=== PATIENT | male | born 1945 | race Hispanic/Latino ===

== ENCOUNTER 2016-12-06 09:00 | Outpatient (CLI) | payer MEDICARE, MEDICAID ==
--- NOTE | 2016-12-06 10:10 | CT ---
CT PULMONARY LUNG SCAN: Date: 12/06/16 INDICATION: Chronic smoking since 14 years of age. Patient is a 71-year-old male. COMPARISON: CT PE study dated 08/26/14. FINDINGS: There are areas of scattered bronchiectasis and tree-in-bud nodularity involving the lower lobes, as well as the posterior segments of the upper lobe. There is a nodular focus within the right mainste m bronchus measuring 1.2 cm, image 27 of series 3. There is mild to moderate emphysema. There is sca ttered coronary artery thoracic aortic calcifications. Visualized upper abdomen is unremarkable. No definite acute osseous abnormality is evident. IMPRESSION: Lung-RADS Category 3S: Positive finding which are likely benign but requiring imaging followup unti l benign criteria identified. There is an endobronchial nodule seen within the right mainstem bronch us which may reflect eccentric mucus. Would recommend low dose CT follow-up examination in 1 month f ollow vigorous coughing. Additionally, there are numerous new scattered tree-in-bud type nodules see n scattered throughout the lower lungs, as well as the upper lobes, which may be related to a bronch iolitis. There has been development of bronchiectasis involving both lower lobes. Category S: Mild to moderate emphysema. Coronary artery and thoracic aortic calcifications. CODE T. POS: [facility]
== END 2016-12-06 09:01 | disposition home or self-care (01) ==
LOC: CT 09:00
PROVIDERS: ATTEND Family Medicine
DX: F17.210 Nicotine dependence, cigarettes, uncomplicated (principal); F17.211 Nicotine dependence, cigarettes, in remission
CPT/HCPCS: G0297

== ENCOUNTER 2017-02-08 07:30 | Emergency (ER) | payer MEDICARE, MEDICAID ==
--- NOTE | 2017-02-08 09:37 | RAD ---
CHEST TWO VIEWS: HISTORY: Cough and fever. COMPARISON: 01/28/2016 FINDINGS: The cardiac silhouette and pulmonary vasculature are unremarkable. The mediastinum is midline. Pulm onary hyperinflation with marked coarsening of the interstitium and scattered tiny nodular densities are stable. No pleural fluid or lobar consolidation is apparent. No evidence of pneumothorax. IMPRESSION: 1. Chronic obstructive pulmonary disease. 2. Coarsened interstitium and other chronic type findings are stable. 3. No lobar consolidation or other active cardiopulmonary abnormalities are apparent. POS: [facility]
[2017-02-08] MEDS ORDERED: Oseltamivir 75 MG CAP PO SCH (12:00)
== END 2017-02-08 12:35 | disposition home or self-care (01) ==
LOC: ERS 07:30
DX: J11.1 Influenza due to unidentified influenza virus with other respiratory manifestations (principal); E78.5 Hyperlipidemia, unspecified; I10 Essential (primary) hypertension; F32.9 Major depressive disorder, single episode, unspecified; Z87.891 Personal history of nicotine dependence; Z86.73 Personal history of transient ischemic attack (TIA), and cerebral infarction without residual deficits
CPT/HCPCS: 71020

== ENCOUNTER 2017-03-03 07:38 | Outpatient (CLI) | payer MEDICARE, MEDICAID ==
--- NOTE | 2017-03-03 09:03 | CT ---
CT CHEST NONCONTRAST: Date: 03/03/17 HISTORY: Endobronchial nodule. COPD. Follow-up. COMPARISON: 12/06/16. FINDINGS: The oval nodular opacity at the posterior aspect of the right mainstem bronchus on the previous study is no longer visible. No new endobronchial nodules are apparent. Lungs remain hyperinflated with scattered emphysematous changes. Peripheral interstitial thickening e xtending to the pleural surface and scattered interstitial nodularity are stable. No focal parenchyma l mass is demonstrated. No pleural fluid or pneumothorax. Lack of contrast limits evaluation of the mediastinum. There is prominent calcification within the ar terial structures. IMPRESSION: 1. Interval disappearance of the nodularity opacity of the right mainstem bronchus from the previous exam. It likely represented mucus at the time. No new abnormalities are apparent. 2. COPD and fibrotic lung changes, stable. 3. Atherosclerosis. POS: [facility]
== END 2017-03-03 07:39 | disposition home or self-care (01) ==
LOC: CT 07:38
PROVIDERS: ATTEND Family Medicine
DX: F17.210 Nicotine dependence, cigarettes, uncomplicated (principal); R91.8 Other nonspecific abnormal finding of lung field; J44.9 Chronic obstructive pulmonary disease, unspecified; J84.10 Pulmonary fibrosis, unspecified; I70.90 Unspecified atherosclerosis
CPT/HCPCS: 71250

== ENCOUNTER 2019-01-20 21:03 | Emergency (ER) | payer MEDICARE, MEDICAID ==
[2019-01-20 23:02] LABS: Hemoglobin 16.5 g/dL (14.0-18.0); Mean Corpuscular HGB CONC 33.2 g/dL (32.0-36.0); Mean Corpuscular Hemoglobin 30.7 pg (27.0-31.0); Mean Corpuscular Volume 92.6 fL (78.0-98.0); RBC Distribution Width 13.1 % (11.5-14.5); Red Blood Cell (RBC) Count 5.37 mill/uL (4.70-6.10)
[2019-01-20 23:11] LABS: MDiff Complete? YES; Mean Platelet Volume 8.6 fL (7.4-10.4); Platelet Count 211 thou/uL (130-400); White Blood Cell (WBC) Count 23.8 thou/uL (4.8-10.8)
[2019-01-20 23:12] LABS: ALT (SGPT) 17 U/L (8-55); AST (SGOT) 17 U/L (5-34); Alkaline Phosphatase 138 U/L (40-110); Anion Gap 12 mmol/L (10-20); BUN (Urea Nitrogen) 25 mg/dL (8.4-25.7); Band 18 % (5-11); Bilirubin, Total 1.1 mg/dL (0.2-1.2); Calc. Creatinine Clearance 0 mL/min (70-130); Calcium 9.5 mg/dL (7.8-10.44); Carbon Dioxide 26 mmol/L (23-31); Chloride 102 mmol/L (98-107); Estimated GFR-MDRD 62; Globulin 3.8 g/dL (2.4-3.5); Glucose 140 mg/dL (83-110); Lymphocytes 10 % (21-51); Monocytes 7 % (0-10); Neutrophil 65 % (42-75); Potassium 3.8 mmol/L (3.5-5.1); Protein, Total 7.8 g/dL (5.8-8.1); Sodium 136 mmol/L (136-145)
[2019-01-21 00:45] LABS: Bacteria/HPF None Seen HPF (None Seen); Bilirubin Negative (Negative); Blood, Urine 3+ (Negative); Clarity Extra Turbid (Clear); Glucose, Urine (Dipstick) 30 mg/dL (Negative); Leukocyte 500 Leu/uL (Negative); Nitrite Negative (Negative); Protein, Urine (Dipstick) 300 mg/dL (Neg-Trace); RBC/HPF Greater than 50 HPF (0-3); Squamous Epithelial None Seen HPF (0-3); Urobilinogen Normal mg/dL (Less than 2); WBC/HPF Greater than 50 HPF (0-3)
[2019-01-21] MEDS ORDERED: cefTRIAXone\\ROCEPHIN 2 GM VIAL ONE (01:10)
[2019-01-21] MEDS ORDERED: Sodium Chloride 0.9% 100 ML ONE (01:10)
== END 2019-01-21 01:46 | disposition home or self-care (01) ==
LOC: ERS 21:03
DX: N30.91 Cystitis, unspecified with hematuria (principal); E78.5 Hyperlipidemia, unspecified; I10 Essential (primary) hypertension; F32.9 Major depressive disorder, single episode, unspecified; Z86.73 Personal history of transient ischemic attack (TIA), and cerebral infarction without residual deficits; Z87.891 Personal history of nicotine dependence; Z79.82 Long term (current) use of aspirin; Z79.51 Long term (current) use of inhaled steroids; Z79.899 Other long term (current) drug therapy
CPT/HCPCS: 36415; 51701; 80053; 81003; 81015; 85025; 87077; 87086; 87186; 96361; 96365; J0696; J3490

== ENCOUNTER 2020-03-03 20:15 | Inpatient (IN) | payer MEDICARE, MEDICAID ==
[2020-03-03] MEDS ORDERED: Albuterol 200 PUFF (6.7GM INHALER) ONE (20:45)
--- NOTE | 2020-03-03 20:47 | RAD ---
PORTABLE CHEST: 03/03/20 HISTORY: Dyspnea. COMPARISON: 02/08/17 exam which is the most recent chest x-ray available for comparison. Heart size is within normal limits. Chronic lung changes are seen. However, there is overall increase in the markings as compared to the prior examination. This would suggest that there is some superimp osed infiltrate. IMPRESSION: Marked chronic lung changes with markings in both lung hart more prominent than on the prior exam s uggesting a coexistent pneumonia of which COVID pneumonia would have to be a consideration. POS: [facility]
[2020-03-03 20:55] LABS: Hemoglobin 16.3 g/dL (14.0-18.0); Mean Corpuscular HGB CONC 32.9 g/dL (32.0-36.0); Mean Corpuscular Hemoglobin 30.3 pg (27.0-31.0); Mean Corpuscular Volume 92.1 fL (78.0-98.0); Mean Platelet Volume 8.1 fL (7.4-10.4); Platelet Count 304 thou/uL (130-400); Red Blood Cell (RBC) Count 5.38 mill/uL (4.70-6.10); White Blood Cell (WBC) Count 22.1 thou/uL (4.8-10.8)
[2020-03-03 21:11] LABS: ALT (SGPT) 17 U/L (8-55); AST (SGOT) 19 U/L (5-34); Albumin 4.1 g/dL (3.4-4.8); Alkaline Phosphatase 167 U/L (40-110); Anion Gap 19 mmol/L (10-20); BUN (Urea Nitrogen) 22 mg/dL (8.4-25.7); Bilirubin, Total 0.7 mg/dL (0.2-1.2); Calc. Creatinine Clearance 0 mL/min (70-130); Carbon Dioxide 25 mmol/L (23-31); Chloride 100 mmol/L (98-107); Globulin 4.6 g/dL (2.4-3.5); Glucose 124 mg/dL (83-110); Potassium 3.5 mmol/L (3.5-5.1); Protein, Total 8.7 g/dL (5.8-8.1); Sodium 140 mmol/L (136-145)
[2020-03-03 21:14] LABS: Band 6 % (5-11); Eosinophils 1 % (0-10); Lymphocytes 19 % (21-51); MDiff Complete? YES; Monocytes 4 % (0-10); Neutrophil 69 % (42-75); Reactive Lymphocytes 1 % (0-10)
[2020-03-03 21:23] LABS: SARS-CoV-2 NAA Rapid Test Not Detected (NotDetected)
[2020-03-03] MEDS ORDERED: cefTRIAXone\\ROCEPHIN 2 GM VIAL ONE (21:36)
--- NOTE | 2020-03-03 21:41 | PDOC.FPRHP ---
- History of Present Illness Chief Complaint: Shortness of Breath History of Present Illness: 74yo male with PMHx of significant COPD presented by EMS for SOB. He presents with his daughter who provides majority of the history. Patience started to have a bad cough around 45min after eating-approximately [id number]. Family called EMS because he was struggling to breath through coughing. They tried his inhaler and Robitussion prior to calling with no improvement. Denies fever and sick contacts. Daughter reports hx of aspiration of pneumonia. ED Course: Per ED report, "He was placed on the EMS CPAP, treated with magnesium, 125 mg of Solu-Medrol, and an inline breathing treatment prior to arrival to the emergency room." At time of exam he was comfortable on 4LNC. Patient received 500 mg Azithromycin, 2g Rocephin, 1L NS bolus, 2 INH of albuterol. Patient met sepsis criteria with pulse of 130, RR of 30, and WBC of 22.1. Patient also had Lactic acid of 4.1. Patient received 1g Tylenol after spiking fever. - Allergies/Adverse Reactions Allergies Allergy/AdvReac Type Severity Reaction Status Date / Time No Known Allergies Allergy Verified 03/04/20 03:51 - Home Medications Medication Instructions Recorded Confirmed Type Aspirin 325 mg PO DAILY 03/04/20 03/04/20 History Atorvastatin Calcium 80 mg PO DAILY 03/04/20 03/04/20 History FLUoxetine HCl 20 mg PO DAILY 03/04/20 03/04/20 History Fluticasone/Salmeterol [Advair HFA 2 inh IH BID #2 [email or web address] 03/04/20 Rx 115 Inhaler] Ipratropium/Albuterol Sulfate 3 ml NEB Q4H #10 neb 03/04/20 Rx [DuoNeb] Memantine HCl 10 mg PO BID 03/04/20 03/04/20 History Cefdinir 300 mg PO Q12HR 8 Days #16 capsule 03/06/20 Rx - History PMHx: 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 Lives with family. Uses walker to ambulate - Review of Systems General: denies: fever/chills, fatigue Eyes: denies: eye pain, vision changes ENT: denies: nasal congestion, rhinorrhea Respiratory: reports: cough, shortness of breath Cardiovascular: denies: chest pain, edema Gastrointestinal: denies: nausea, vomiting, diarrhea Genitourinary: reports: incontinence. denies: dysuria Skin: denies: rashes, lesions Musculoskeletal: denies: pain, swelling Neurological: reports: weakness (chronic R sided weakness). denies: syncope - Vital signs BP: 198/125, Pulse: 130, Resp: 30, Temp: 99.5 (Oral), Pain: UTR, O2 sat: 97 on (Bipap), Time: 03/03/2020 20:18. BP: 157/92, Pulse: 124, Resp: 29, Pain: UTR, O2 sat: 97 5L, Time: 03/03/2020 20:5 1. BP: 120/60, Pulse: 120, Resp: 28, Pain: UTR, O2 sat: 98 5L, Time: 03/03/2020 21:26. Wt 73 kg - Physical Exam Constitutional: NAD HEENT: normocephalic and atraumatic, grossly normal vision, grossly normal hearing Neck: supple, FROM Chest: no-tender to palpation Heart: RRR, normal S1/S2, no murmurs/rubs/gallops Lungs: no respiratory distress -Lungs: Very Poor air movement with no wheezing or rhonchi Abdomen: soft, non-tender, bowel sounds present, no masses/distention Musculoskeletal: normal structure, normal tone, ROM grossly normal Neurological: other (Right sided weakness, 4/5 strength, A&OX1-2) Skin: no rash/lesions, good turgor Heme/Lymphatic: no unusual bruising or bleeding, no petechia FMR H&P: Results - Labs Result Diagrams: 03/06/20 04:44 03/06/20 04:44 Lab results: WBC 22.1 thou/uL (4.8-10.8) H 03/03/20 20:38 Hgb 16.3 g/dL (14.0-18.0) 03/03/20 20:38 Hct 49.6 % (42.0-52.0) 03/03/20 20:38 MCV 92.1 fL (78.0-98.0) 03/03/20 20:38 Plt Count 304 thou/uL (130-400) 03/03/20 20:38 Band Neuts % (Manual) 6 % (5-11) 03/03/20 20:38 Sodium 140 mmol/L (136-145) 03/03/20 20:38 Potassium 3.5 mmol/L (3.5-5.1) 03/03/20 20:38 Chloride 100 mmol/L (98-107) 03/03/20 20:38 Carbon Dioxide 25 mmol/L (23-31) 03/03/20 20:38 BUN 22 mg/dL (8.4-25.7) 03/03/20 20:38 Creatinine 1.09 mg/dL (0.7-1.3) 03/03/20 20:38 Glucose 124 mg/dL (83-110) H 03/03/20 20:38 Lactic Acid 4.1 mmol/L (0.5-2.2) H* 03/03/20 20:38 Calcium 9.0 mg/dL (7.8-10.44) 03/03/20 20:38 Total Bilirubin 0.7 mg/dL (0.2-1.2) 03/03/20 20:38 AST 19 U/L (5-34) 03/03/20 20:38 ALT 17 U/L (8-55) 03/03/20 20:38 Alkaline Phosphatase 167 U/L (40-110) H 03/03/20 20:38 B-Natriuretic Peptide 13.8 pg/mL (0-100) 03/03/20 20:38 Serum Total Protein 8.7 g/dL (5.8-8.1) H 03/03/20 20:38 Albumin 4.1 g/dL (3.4-4.8) 03/03/20 20:38 - EKG Interpretation EKG: EKG with significant artifact, tachycardia. - Radiology Interpretation Chest x-ray Status: image reviewed by me, report reviewed by me Additional comment: More marked chronic lung changes consistent with COPD with concern for pneumo terence. FMR H&P: A/P - Plan Acute hypoxic respiratory failure 2/2 CAP vs Aspiration Pneumonia Sepsis 2/2 above - Patient met sepsis criteria w/ tachycardia, tachypnea, WBC count. LA 4.1. O2 requirement weaned from CPAPwith EMS to 4L NC currently - Patient has hx of aspiration pneumonia s/p CVA, daughter is unsure of last e pisode - S/p Rocephin/Azithro in ed - Will treat for CAP/aspiration pneumonia with Unasyn and Azithromycin - Monitor VS COPD Exacerbation - Likely some component of dyspnea given hx and poor air movement - Duonebs scheduled Q4h - Solumedrol 40 mg QD - O2 sats 88-92%, supplemental O2 PRN Tachycardia - in 130s in ED - mIVF with LR Hx of CVA - Has residual R sided weakness - Speech therapy consult for swallow eval given concern for aspiration pneumonitis - Otherwise, deficits at baseline per daughter HTN - Will control with IV PRN medication until swallow study cleared Chronic Disease - HLD, GERD - Hold home medications pending swallow study DVT ppx: Lovenox GI PPX: none Diet: NPO Code: Full-Daughter requested that medicine and defibrillation be tried before intubation and chest compression. PCP- Demetrio GERONIMO FMR H&P: Upper Level - Pertinent history Mr Lieberman is a 74yo male with pmh COPD presented via EMS for SOB. His family was concerned about his coughing and work of breathing. Episode started approx. 45min after eating. Prior to this he was in his usual state of health. Denies sick contacts, fever, diarrhea. Tried inhaler at home with little improvement. Has hx of aspiration pna. PE: General: NAD, oriented to person and place with prompts CV: tachycardic regular rhythm, no murmur Pulm: Diminished air movement Extremities: No edema Neuro: R sided weakness A/P: Acute Hypoxic Resp Failure 2/2 CAP vs COPD exacerbation -Initially requiring CPAP, now on 4L NC. Rapid COVID/Flu neg. CXR chronic lung changes with coexistent pneumonia. BNP nml. Azithromycin & Ceftriaxone started in ED, Will treat for aspiration pna with Unasyn to cover anaerobes and azithro for atypicals. Ordered procal. Treat COPD exacerbation with steroids and scheduled duonebs q4hr. Admit to medical. Sepsis 2/2 PNA -WBC 22.5, HR 120. Blood and urine cx pending. Continue Abx. LA 4.1, repeat ordered. Procal pending. - Plan Date/Time: 03/03/202137 I, Brittany Kidd, have evaluated this patient and agree with findings/plan as outlined by internet media planner resident. Pertinent changes/additions are listed here. Addendum - Attending - Attending Attestation Date/Time: 03/29/20 [id number] I personally evaluated the patient and discussed the management with Dr. Wilson on 03/03/20. I agree with the History, Examination, Assessment and Plan documented above without any addition or exceptions.
[2020-03-03] MEDS ORDERED: Azithromycin 500 MG VIAL ONE (22:19)
[2020-03-03] MEDS ORDERED: Acetaminophen 500 MG TAB ONE (22:27)
[2020-03-03] MEDS ORDERED: Acetaminophen 650 MG Suppository PR PRN (23:31)
[2020-03-03 23:38] LABS: Lactic Acid 1.8 mmol/L (0.5-2.2)
[2020-03-04] MEDS ORDERED: Lactated Ringer's 1,000 ML IV SCH (00:15)
[2020-03-04] MEDS ORDERED: Ampicillin/Sulbactam 3 GM in Sodium Chloride 0.9% 100 ML IVPB SCH ×2 (00:45→06:00)
[2020-03-04 04:04] VITALS: BMI 27.6
[2020-03-04] MEDS ORDERED: FLU VACC QS2020-21(65YR UP)/PF 240 MCG/0.7 ML SYRINGE IM ONE (06:30)
--- NOTE | 2020-03-04 06:45 | PDOC.FM ---
- Subjective Subjective: Patient resting comfortably in bed on 2.5L NC @ 100%. Patient taken off O2 as goal with history of COPD is 88-92%. States he has no complaints and feels better than he did yesterday. Denies CP, SOB - Objective MAR Reviewed: Yes Vital Signs & Weight: Vital Signs (12 hours) Temp Pulse Resp BP Pulse Ox 03/04/20 03:45 98.1 F 80 14 129/72 100 03/04/20 00:48 94 15 100 Weight Weight 75.251 kg Result Diagrams: 03/04/20 06:25 03/04/20 06:25 Phys Exam - Physical Examination Constitutional: NAD HEENT: moist MMs Neck: supple, full ROM diffuse rhonci b/l Cardiovascular: RRR, no significant murmur Gastrointestinal: soft, non-tender, positive bowel sounds Musculoskeletal: no edema, pulses present Neurological: normal sensation, moves all 4 limbs Psychiatric: normal affect Skin: no rash, normal turgor Dx/Plan - Plan Plan: Acute hypoxic respiratory failure 2/2 CAP vs Aspiration Pneumonitis - Patient w/ tachycardia, tachypnea, WBC count. LA 4.1. O2 requirement weaned from CPAPwith EMS to 4L NC currently - Patient has hx of aspiration pneumonia s/p CVA, daughter is unsure of last e pisode - S/p Rocephin/Azithro in ed - Was initially treated for CAP/aspiration pneumonia with Unasyn and Azithromycin, d/c on 03/04 - Monitor VS -lactic acid and WBC trended down. Clinical picture improved, on RA, procal neg. likely aspiration pneumonitis. Will treat as such. history of COPD - on home Duonebs and Advair - Duonebs scheduled Q4h - Solumedrol 40 mg QD (d/c 03/04) - O2 sats 88-92%, supplemental O2 PRN Tachycardia, resolved - in 130s in ED - mIVF with LR d/c 03/04 Hx of CVA - Has residual R sided weakness - Speech therapy consult for swallow eval given concern for aspiration pneumonitis - Otherwise, deficits at baseline per daughter HTN - Will control with IV PRN medication until swallow study cleared Chronic Disease - HLD, GERD - Hold home medications pending swallow study DVT ppx: Lovenox GI PPX: none Diet: NPO pending speech consult Code: Full-Daughter requested that medicine and defibrillation be tried before intubation and chest compression. PCP- Demetrio GERONIMO Dispo: patient does not meet inpatient criteria at this time. Pending speech eval. Improved respiratory status. Will monitor for the rest of today; anticipate discharge today or tomorrow with follow up later this week outpatient Addendum - Attending - Attending Attestation Date/Time: 03/04/20 1141 I personally evaluated the patient and discussed the management with Dr. Guajardo. I agree with the History, Examination, Assessment and Plan documented above with any addition or exceptions noted below. Patient with no symptoms this AM and at baseline. No cough, fever or other signs. His exam is largely reassuring. I feel likely if aspiration, just mild pneumonitis and no current indications of PNA. Return warnings discussed in detail.
[2020-03-04 06:51] LABS: Hemoglobin 13.7 g/dL (14.0-18.0); Mean Corpuscular HGB CONC 32.8 g/dL (32.0-36.0); Mean Corpuscular Hemoglobin 30.4 pg (27.0-31.0); Mean Corpuscular Volume 92.9 fL (78.0-98.0); Mean Platelet Volume 8.2 fL (7.4-10.4); Platelet Count 213 thou/uL (130-400); RBC Distribution Width 12.8 % (11.5-14.5); Red Blood Cell (RBC) Count 4.51 mill/uL (4.70-6.10); White Blood Cell (WBC) Count 20.3 thou/uL (4.8-10.8)
[2020-03-04 07:09] LABS: ALT (SGPT) 15 U/L (8-55); AST (SGOT) 14 U/L (5-34); Albumin 3.1 g/dL (3.4-4.8); Alkaline Phosphatase 103 U/L (40-110); Anion Gap 15 mmol/L (10-20); BUN (Urea Nitrogen) 19 mg/dL (8.4-25.7); Bilirubin, Total 0.5 mg/dL (0.2-1.2); Calc. Creatinine Clearance 73 mL/min (70-130); Calcium 8.3 mg/dL (7.8-10.44); Carbon Dioxide 22 mmol/L (23-31); Chloride 106 mmol/L (98-107); Globulin 3.5 g/dL (2.4-3.5); Glucose 214 mg/dL (83-110); Potassium 4.1 mmol/L (3.5-5.1); Protein, Total 6.6 g/dL (5.8-8.1); Sodium 139 mmol/L (136-145)
[2020-03-04 07:43] LABS: Band 32 % (5-11); Lymphocytes 6 % (21-51); MDiff Complete? YES; Metamyelocyte 1 % (0-0); Monocytes 2 % (0-10); Neutrophil 59 % (42-75); Platelet Morphology Comment Appears Adequate; RBC Morphology Normal
[2020-03-04] MEDS ORDERED: HumaLOG 300 UNITS/3 ML VIAL SC PRN ×2 (08:02)
[2020-03-04] MEDS ORDERED: Dextrose 5% in Water 1,000 ML IV PRN (08:02)
[2020-03-04] MEDS ORDERED: Dextrose 50% Abboject 50 ML SYRINGE SLOW IVP PRN (08:02)
[2020-03-04] MEDS ORDERED: methylPREDNISolone Sod Succ 40 MG VIAL IVP SCH (09:00)
[2020-03-04] MEDS: Enoxaparin Sodium 40 MG/0.4 ML SYRINGE SC SCH (09:42)
[2020-03-04] MEDS ORDERED: Azithromycin 250 MG TAB PO SCH (21:00)
--- NOTE | 2020-03-05 06:14 | PDOC.FM ---
- Subjective Subjective: Patient resting comfortably in bed this AM. No complaints. Breathing comfortably on RA. Overnight, patient was agitated and pulled out his IV - Objective MAR Reviewed: Yes Vital Signs & Weight: Vital Signs (12 hours) Temp Pulse Resp BP Pulse Ox 03/05/20 04:00 98.1 F 99 16 116/64 93 L 03/05/20 02:31 91 16 96 03/05/20 00:00 97.6 F 94 14 117/56 L 96 03/04/20 22:07 89 14 100 03/04/20 20:00 97.8 F 90 14 107/59 L 94 L 03/04/20 18:19 86 14 100 Weight Weight 75.251 kg I&O: 03/03/20 03/04/20 03/05/20 06:59 06:59 06:59 Intake Total 426 Balance 426 Result Diagrams: 03/05/20 05:26 03/05/20 05:26 Phys Exam - Physical Examination Constitutional: NAD HEENT: moist MMs Neck: no JVD Respiratory: no wheezing, clear to auscultation bilateral Cardiovascular: RRR, no significant murmur Gastrointestinal: soft, non-tender Musculoskeletal: no edema, pulses present Neurological: moves all 4 limbs Deviation from normal: mildly demented Dx/Plan - Plan Plan: Gram Negative Bacteremia -patient is asymptomatic, afebrile -denies dysuria or any complaints -will obtain UA -will do prostate exam -start IV Rocephin pending sensitivities Acute hypoxic respiratory failure 2/2 CAP vs Aspiration Pneumonitis - Patient w/ tachycardia, tachypnea, WBC count. LA 4.1. O2 requirement weaned from CPAPwith EMS to 4L NC currently - Patient has hx of aspiration pneumonia s/p CVA, daughter is unsure of last episode - S/p Rocephin/Azithro in ed - Was initially treated for CAP/aspiration pneumonia with Unasyn and Azithromycin, d/c on 03/04 - Monitor VS -lactic acid and WBC trended down. Clinical picture improved, on RA, procal neg. likely aspiration pneumonitis. Will treat as such. -patient desatted with walk test and did well with 1L. Home O2 ordered. history of COPD - on home Duonebs and Advair - Duonebs scheduled Q4h - Solumedrol 40 mg QD (d/c 03/04) - O2 sats 88-92%, supplemental O2 PRN Tachycardia, resolved - in 130s in ED - mIVF with LR d/c 03/04 Hx of CVA - Has residual R sided weakness - Speech therapy consult for swallow eval given concern for aspiration pneumonitis - Otherwise, deficits at baseline per daughter HTN - Will control with IV PRN medication until swallow study cleared Chronic Disease - HLD, GERD - Hold home medications pending swallow study DVT ppx: Lovenox GI PPX: none Diet: HH, CC with speech recs Code: Full-Daughter requested that medicine and defibrillation be tried before intubation and chest compression. PCP- Demetrio GERONIMO Dispo: patient meets inpatient criteria with bacteremia. Improved respiratory status. Discharge pending sensitivites of blood cultures and treatment of bacteremia Addendum - Attending - Attending Attestation Date/Time: 03/05/20 [id number] I personally evaluated the patient and discussed the management with Dr. Sanabria. I agree with the History, Examination, Assessment and Plan documented above with any addition or exceptions noted below. Continue antibiotics for GN bacteremia. Will consider repeat cultures pending sensitivities. Has had delirium overnight, likely 2/2 multiple problems.
[2020-03-05 06:17] LABS: ALT (SGPT) 13 U/L (8-55); AST (SGOT) 13 U/L (5-34); Alkaline Phosphatase 85 U/L (40-110); Anion Gap 9 mmol/L (10-20); BUN (Urea Nitrogen) 17 mg/dL (8.4-25.7); Bilirubin, Total 0.5 mg/dL (0.2-1.2); Calc. Creatinine Clearance 95 mL/min (70-130); Calcium 8.5 mg/dL (7.8-10.44); Carbon Dioxide 26 mmol/L (23-31); Chloride 106 mmol/L (98-107); Globulin 3.3 g/dL (2.4-3.5); Glucose 123 mg/dL (83-110); Potassium 3.4 mmol/L (3.5-5.1); Protein, Total 6.3 g/dL (5.8-8.1); Sodium 138 mmol/L (136-145)
[2020-03-05 06:39] LABS: Hemoglobin 12.8 g/dL (14.0-18.0); Mean Corpuscular HGB CONC 33.5 g/dL (32.0-36.0); Mean Corpuscular Hemoglobin 30.6 pg (27.0-31.0); Mean Corpuscular Volume 91.5 fL (78.0-98.0); Mean Platelet Volume 8.5 fL (7.4-10.4); Platelet Count 215 thou/uL (130-400); Red Blood Cell (RBC) Count 4.19 mill/uL (4.70-6.10)
[2020-03-05] MEDS: Enoxaparin Sodium 40 MG/0.4 ML SYRINGE SC SCH (07:58)
[2020-03-05 08:51] LABS: Band 22 % (5-11); Lymphocytes 8 % (21-51); MDiff Complete? YES; Monocytes 1 % (0-10); Neutrophil 69 % (42-75); RBC Morphology Normal
[2020-03-05] MEDS: cefTRIAXone\\ROCEPHIN 2 GM in Sodium Chloride 0.9% 100 ML IVPB SCH (11:00)
[2020-03-05 11:07] LABS: Bilirubin Negative (Negative); Blood, Urine 3+ (Negative); Clarity Clear (Clear); Glucose, Urine (Dipstick) Normal (Negative); Ketone, Urine Negative (Negative); Leukocyte 25 Leu/uL (Negative); Nitrite Negative (Negative); Protein, Urine (Dipstick) Negative (Neg-Trace); Specific Gravity, Urine 1.004 (1.002-1.036); Urobilinogen Normal mg/dL (Less than 2); pH, Urine 6.5 (5.0-9.0)
[2020-03-05 11:18] LABS: RBC/HPF 0-3 HPF (0-3); Squamous Epithelial None Seen HPF (0-3); Transitional Epithelial 0-3 HPF (None Seen); WBC/HPF None Seen HPF (0-3)
[2020-03-05 11:19] LABS: Bacteria/HPF None Seen HPF (None Seen); Urine Culture Reflex Yes Yes
[2020-03-05] MEDS ORDERED: FLUoxetine HCl 20 MG CAP PO SCH (11:30)
[2020-03-06 05:18] LABS: #Lymphocytes 1.6 thou/uL (1.20-3.40); #Monocytes 0.8 thou/uL (0.11-0.59); #Neutrophils 8.8 thou/uL (1.40-6.50); %Basophils 0.4 % (0.0-1.0); %Eosinophils 0.4 % (0.0-10.0); %Lymphocytes 13.9 % (21.0-51.0); %Monocytes 7.1 % (0.0-10.0); %Neutrophils 78.1 % (42.0-75.0); Hemoglobin 13.6 g/dL (14.0-18.0); Mean Corpuscular HGB CONC 31.7 g/dL (32.0-36.0); Mean Corpuscular Hemoglobin 29.1 pg (27.0-31.0); Mean Corpuscular Volume 91.7 fL (78.0-98.0); Mean Platelet Volume 8.5 fL (7.4-10.4); Platelet Count 241 thou/uL (130-400); RBC Distribution Width 13.1 % (11.5-14.5); Red Blood Cell (RBC) Count 4.69 mill/uL (4.70-6.10); White Blood Cell (WBC) Count 11.2 thou/uL (4.8-10.8)
--- NOTE | 2020-03-06 05:22 | PDOC.FM ---
- Subjective Subjective: Patient resting comfortably in bed. Daughter states last night was better but still agitated. On RA. Has been afebrile - Objective MAR Reviewed: Yes Vital Signs & Weight: Vital Signs (12 hours) Temp Pulse Resp BP Pulse Ox 03/06/20 03:24 98.5 F 79 14 158/92 H 97 03/06/20 00:10 98.4 F 92 20 106/64 94 L 03/05/20 19:16 97.9 F 80 16 147/68 H 94 L 03/05/20 19:03 85 16 95 Weight Weight 75.251 kg I&O: 03/04/20 03/05/20 03/06/20 06:59 06:59 06:59 Intake Total 426 970 Balance 426 970 Result Diagrams: 03/06/20 04:44 03/06/20 04:44 Phys Exam - Physical Examination Constitutional: NAD HEENT: moist MMs Neck: supple Respiratory: no wheezing, no rhonchi Cardiovascular: RRR, no significant murmur Gastrointestinal: soft, non-tender Musculoskeletal: no edema, pulses present Neurological: moves all 4 limbs Deviation from normal: pleasantly demented Skin: normal turgor Dx/Plan - Plan Plan: Gram Negative Bacteremia: H. infleuenzae -patient is asymptomatic, afebrile -denies dysuria or any complaints -UA suggestive of UTI, culture pending -prostate exam negative for prostatitis, but prostate was enlarged -start IV Rocephin pending sensitivities as this should cover both UTI and GN bacteremia -patient has not looked toxic throughout whole stay -consider endocarditis on differential givne HACEK organism, but clinical picture does not fit this as well vs from a respiratory source Acute hypoxic respiratory failure 2/2 CAP vs Aspiration Pneumonitis - Patient w/ tachycardia, tachypnea, WBC count. LA 4.1. O2 requirement weaned from CPAPwith EMS to 4L NC currently - Patient has hx of aspiration pneumonia s/p CVA, daughter is unsure of last episode - S/p Rocephin/Azithro in ed - Was initially treated for CAP/aspiration pneumonia with Unasyn and Azithromycin, d/c on 03/04 - Monitor VS -lactic acid and WBC trended down. Clinical picture improved, on RA, procal neg. likely aspiration pneumonitis. Will treat as such. -patient desatted with walk test and did well with 1L. Home O2 ordered. history of COPD - on home Duonebs and Advair - Duonebs scheduled Q4h - Solumedrol 40 mg QD (d/c 03/04) - O2 sats 88-92%, supplemental O2 PRN Tachycardia, resolved - in 130s in ED - mIVF with LR d/c 03/04 Hx of CVA - Has residual R sided weakness - Speech therapy consult for swallow eval given concern for aspiration pneumonitis - Otherwise, deficits at baseline per daughter HTN - Will control with IV PRN medication until swallow study cleared Chronic Disease - HLD, GERD, dementia - continue home meds -Seroquel qHS to help with nighttime delirium and agitation DVT ppx: Lovenox GI PPX: none Diet: HH, CC with speech recs Code: Full-Daughter requested that medicine and defibrillation be tried before intubation and chest compression. PCP- Demetrio GERONIMO Dispo: patient meets inpatient criteria with bacteremia. Improved respiratory status. Discharge pending sensitivities of blood cultures and treatment of bacteremia. Patient has HH already in place. Pending home O2 Addendum - Attending - Attending Attestation Date/Time: 03/06/20 2526 I personally evaluated the patient and discussed the management with the team. I agree with the History, Examination, Assessment and Plan documented above with any addition or exceptions noted below. Patient with mild agitated delirium last night but currently back to mental status baseline per family. He says he feels good, no complaints. Respiratory exam improved. Transition to PO and plan for dc to complete adequate course. Strict return precautions.
[2020-03-06 05:47] LABS: ALT (SGPT) 19 U/L (8-55); AST (SGOT) 21 U/L (5-34); Albumin 3.3 g/dL (3.4-4.8); Alkaline Phosphatase 97 U/L (40-110); Anion Gap 12 mmol/L (10-20); BUN (Urea Nitrogen) 14 mg/dL (8.4-25.7); Bilirubin, Total 0.5 mg/dL (0.2-1.2); Calc. Creatinine Clearance 83 mL/min (70-130); Calcium 8.7 mg/dL (7.8-10.44); Carbon Dioxide 29 mmol/L (23-31); Chloride 102 mmol/L (98-107); Globulin 3.6 g/dL (2.4-3.5); Glucose 93 mg/dL (83-110); Potassium 3.5 mmol/L (3.5-5.1); Protein, Total 6.9 g/dL (5.8-8.1); Sodium 139 mmol/L (136-145)
[2020-03-06] MEDS ORDERED: FLUoxetine HCl 20 MG CAP PO SCH (09:00)
[2020-03-06] MEDS ORDERED: Aspirin 325 MG TAB PO SCH (09:00)
[2020-03-06] MEDS: Enoxaparin Sodium 40 MG/0.4 ML SYRINGE SC SCH (10:17)
[2020-03-06] MEDS: cefTRIAXone\\ROCEPHIN 2 GM in Sodium Chloride 0.9% 100 ML IVPB SCH (10:18)
[2020-03-06 11:54] VITALS: BP 123/66; TEMP 99
[2020-03-06] MEDS ORDERED: Atorvastatin Calcium 40 MG TAB PO SCH (21:00)
--- NOTE | 2020-03-07 17:10 | DIS ---
DATE OF ADMISSION: 03/03/2020 DATE OF DISCHARGE: 03/06/2020 RESIDENT: Mackenzie Sanabria MD, PGY-1. ADMITTING ATTENDING: Dr. Ruffin. DISCHARGING ATTENDING: Dr. Gonzalez. CONSULTS: Case Management and Speech. PROCEDURES: Chest x-ray on 03/03/20, which shows marked chronic lung changes with markings in both lung hart, more prominent than on the prior exam suggesting a coexistent pneumonia of which COVID pneumonia would have to be a consideration. PRIMARY DIAGNOSIS: Gram-negative bacteremia caused by Haemophilus influenzae. SECONDARY DIAGNOSES: 1. Acute hypoxic respiratory failure secondary to aspiration pneumonitis. 2. History of chronic obstructive pulmonary disease. 3. Tachycardia, resolved. 4. History of cerebrovascular accident. 5. Hypertension. 6. History of dementia. DISCHARGE MEDICATIONS: 1. DuoNeb 3 mL nebulized every 4 hours as needed. 2. Advair 2 inhalation b.i.d. 3. Cefdinir 300 mg p.o. b.i.d. for the next 8 days. 4. Memantine 10 mg p.o. b.i.d. 5. Fluoxetine 20 mg p.o. daily. 6. Atorvastatin 80 mg p.o. daily. 7. Aspirin 325 mg p.o. daily. DISCONTINUED MEDICATIONS: None. HISTORY OF PRESENT ILLNESS/HOSPITAL COURSE: Patient is a 74-year-old male, who presented to the ED for shortness of breath. He presented with his daughter who provided the majority of the history. On the night of admission, patient started to have a bad cough around 45 minutes after eating. Family called EMS because he was struggling to breathe through coughing. They tried his inhaler and Robitussin prior to calling EMS with no improvement. Denies fevers, chills, increased cough or sputum production. No sick contacts. Daughter reports history of aspiration pneumonia. In the ED, report was that he was placed on CPAP with EMS, treated with magnesium, 125 of Solu-Medrol and in-line breathing treatment prior to arrival to the emergency room. At the time of exam, patient was comfortable on 4 L. Patient received 500 mg azithromycin, 2 g Rocephin, 1 L normal saline bolus, 2 inhalations of albuterol in the ED and 1 g of Tylenol. Once patient was up to the floor, patient was saturating well on room air. Had no cough. No trouble breathing. He passed his walk test and did not desaturate on room air. On the day of discharge, the patient denied any complaints or concerns. He was cleared by Speech to advance his diet. The patient did receive blood cultures in the ED. These came back 2 for 2 positive for gram-negative bacteremia for Haemophilus influenzae. The patient was started on Rocephin for the UA that was suggestive of UTI and was continued on that as Rocephin has good coverage of Haemophilus. The patient was stable throughout his stay. Vitals remained stable. He was never toxic appearing. He was sent home with p.o. antibiotics to continue for his gram-negative bacteremia with return precautions for cough, shortness of breath, fever or worsening of symptoms. DISPOSITION: Stable. DISCHARGE INSTRUCTIONS: 1. Location: Home. 2. Diet: Heart healthy diet. 3. Activity: Activity as tolerated, cardiopulmonary limits. 4. Followup: Follow up within a week with [facility] physicians for close followup and hospital followup. Job ID: [id number] [facility]
--- NOTE | 2020-03-09 23:10 | PQF ---
CLINICAL DOCUMENTATION CLARIFICATION FORM: Dear : ___Harmeet Rivera MD Date / Time: _03/10/2020\ 2308____ Please exercise your independent, professional judgment in responding to the clarification form. Clinical indicators are provided on the bottom of this form for your review I did not see the patient so I am unable to sign this document. Thank you Please check appropriate box(es): [ ] Sepsis due to Haemophilus influenza [ ] Localized infection without sepsis due to Haemophilus influenza [ ] Other diagnosis [ ] Unable to determine In addition, please specify: Present on Admission (POA): [ ] Yes [ ] No [ ] Unable to determine Physician Signature: WENDY Date/Time: 03/28/20 For continuity of documentation, please document condition throughout progress notes and discharge summary. Thank You. To be completed by CDI/Coding staff for physician review: Present Clinical Indicators - Signs / Symptoms / Labs Results and Location in Medical Record [ x ] Gram Negative bacteremia caused by Haemiophilus influenzae DS, 03/06, Daniele Mann MD [ x ] Tachycardia resolved , 03/06, Daniele Mann MD [x ] Patient met sepsis criteria w/tachycardia, tachypnea, WBC count LA 4.1 H&P, 03/03, Lynn Wilson MD [ x ] Sepsis 2/2 PNA, WBC: 22.5, HR: 120 H&P, 03/03, Lynn Wilson MD [ x ] More prominent than on the prior exam suggesting a coexistent pneumonia of which COVID pneumonia would have to be a consideration DS, 03/06, Daniele Mann MD [ Present Risk Factors Results and Location in Medical Record [ x ] Acute hypoxic respiratory failure DS, 03/06, Daniele Mann MD [ x ] Aspiration pneumonitis DS, 03/06, Daniele Mann MD Present Treatments Results and Location in Medical Record [ x ] Ampicillin.IV 03/03 CDS/Neon Sign Mechanic Signature: Isael Barron Phone #: Date / Time: _03/10/2020\ 2308____ LAINEY
--- NOTE | 2020-03-25 13:15 | EKG ---
Test Reason : Blood Pressure : / mmHG Vent. Rate : 119 BPM Atrial Rate : 119 BPM P-R Int : 172 ms QRS Dur : 062 ms QT Int : 310 ms P-R-T Axes : 044 -02 -18 degrees QTc Int : 436 ms Sinus tachycardia with Fusion complexes Nonspecific ST and T wave abnormality Abnormal ECG Confirmed by NAVNEET CHAN ([id number]), assignment desk editor PERI MATHEWS ([id number]) on 03/25/2020 1:14:29 PM Referred By: Confirmed By:NAVNEET Roach
== END 2020-03-06 16:17 | disposition home or self-care (01) | DRG 177 ==
LOC: ERS 20:15 → ERHOLD 21:51 → 3SE 03-04 03:44
PROVIDERS: ADMIT Student in an Organized Health Care Education/Training Program; ATTEND Hospitalist
DX: J69.0 Pneumonitis due to inhalation of food and vomit (principal); J96.01 Acute respiratory failure with hypoxia; J44.0 Chronic obstructive pulmonary disease with (acute) lower respiratory infection; I69.351 Hemiplegia and hemiparesis following cerebral infarction affecting right dominant side; K21.9 Gastro-esophageal reflux disease without esophagitis; E78.5 Hyperlipidemia, unspecified; F01.50 Vascular dementia, unspecified severity, without behavioral disturbance, psychotic disturbance, mood disturbance, and anxiety; F32.9 Major depressive disorder, single episode, unspecified; I10 Essential (primary) hypertension; F03.90 Unspecified dementia, unspecified severity, without behavioral disturbance, psychotic disturbance, mood disturbance, and anxiety
CPT/HCPCS: 0240U; 36415; 36416; 71045; 80053; 81001; 83605; 83735; 83880; 84145; 84484; 85025; 87040; 87077; 87086; 87149; 93005; 94640; 96365; 96367; J0295; J0456; J0696; J1650; J2920; J3490; J7620

== ENCOUNTER 2020-05-19 05:21 | Inpatient (IN) | payer MEDICARE, MEDICAID ==
[2020-05-19 05:55] LABS: Hemoglobin 14.2 g/dL (14.0-18.0); Mean Corpuscular HGB CONC 33.5 g/dL (32.0-36.0); Mean Corpuscular Hemoglobin 30.8 pg (27.0-31.0); Mean Platelet Volume 8.1 fL (7.4-10.4); Platelet Count 283 thou/uL (130-400); RBC Distribution Width 13.7 % (11.5-14.5); White Blood Cell (WBC) Count 15.3 thou/uL (4.8-10.8)
[2020-05-19 06:00] LABS: INR-International Normal Ratio 0.9; Prothrombin Time 12.8 sec (12.0-14.7)
[2020-05-19] MEDS ORDERED: methylPREDNISolone Sod Succ/PF 125 MG/2 ML VIAL ONE (06:00)
[2020-05-19 06:01] LABS: PTT 28.6 sec (22.9-36.1)
[2020-05-19 06:09] LABS: Band 14 % (5-11); Eosinophils 6 % (0-10); Lymphocytes 7 % (21-51); MDiff Complete? YES; Metamyelocyte 1 % (0-0); Monocytes 6 % (0-10); Neutrophil 66 % (42-75); Platelet Morphology Comment Appears Adequate
[2020-05-19 06:17] LABS: ALT (SGPT) 14 U/L (8-55); AST (SGOT) 17 U/L (5-34); Albumin 3.5 g/dL (3.4-4.8); Alkaline Phosphatase 120 U/L (40-110); Anion Gap 16 mmol/L (10-20); BUN (Urea Nitrogen) 20 mg/dL (8.4-25.7); Calc. Creatinine Clearance 0 mL/min (70-130); Calcium 8.7 mg/dL (7.8-10.44); Carbon Dioxide 24 mmol/L (23-31); Chloride 103 mmol/L (98-107); Globulin 3.5 g/dL (2.4-3.5); Glucose 102 mg/dL (83-110); Potassium 3.4 mmol/L (3.5-5.1); Sodium 140 mmol/L (136-145)
[2020-05-19] MEDS ORDERED: cefTRIAXone\\ROCEPHIN 2 GM VIAL ONE (06:23)
[2020-05-19] MEDS ORDERED: Azithromycin 500 MG VIAL ONE (06:23)
[2020-05-19] MEDS ORDERED: Aspirin Chewable 81 MG TAB ONE (07:01)
[2020-05-19 07:07] LABS: CKMB 4.4 ng/mL (0-6.6)
[2020-05-19 08:05] LABS: SARS-CoV-2 NAA Rapid Test Not Detected (NotDetected)
[2020-05-19] MEDS ORDERED: Acetaminophen 325 MG TAB PO PRN (08:18)
[2020-05-19 08:58] LABS: Lactic Acid 1.9 mmol/L (0.5-2.2)
[2020-05-19] MEDS ORDERED: Potassium Chloride 20 MEQ TAB PO SCH (09:00)
[2020-05-19 09:08] LABS: Troponin I 0.029 ng/mL (< 0.028)
[2020-05-19] MEDS ORDERED: Potassium Chloride 20 MEQ TAB ONE (11:41)
[2020-05-19] MEDS ORDERED: Aspirin 325 MG TAB ONE (11:41)
[2020-05-19] MEDS: Lactated Ringer's 1,000 ML IV SCH ×2 (11:57→21:51)
[2020-05-19] MEDS: Atorvastatin Calcium 40 MG TAB PO SCH (13:02)
[2020-05-19] MEDS: FLUoxetine HCl 20 MG CAP PO SCH (13:02)
[2020-05-19] MEDS: Aspirin 325 MG TAB PO SCH (13:02)
[2020-05-19] MEDS: Ampicillin/Sulbactam 3 GM in Sodium Chloride 0.9% 100 ML IVPB SCH ×2 (14:49→19:34)
[2020-05-19] MEDS ORDERED: Albuterol Sulfate 2.5 mg/3 ml Neb NEB SCH (15:30)
[2020-05-19] MEDS: Mometasone 100 MCG/Formoterol 5 MCG 120 PUFF INHALER INH SCH (19:01)
[2020-05-20] MEDS: Ampicillin/Sulbactam 3 GM in Sodium Chloride 0.9% 100 ML IVPB SCH ×4 (01:34→17:35)
[2020-05-20 04:52] LABS: #Lymphocytes 1.3 thou/uL (1.20-3.40); #Monocytes 0.6 thou/uL (0.11-0.59); #Neutrophils 11.8 thou/uL (1.40-6.50); %Basophils 0.1 % (0.0-1.0); %Eosinophils 0.1 % (0.0-10.0); %Lymphocytes 9.7 % (21.0-51.0); %Monocytes 4.6 % (0.0-10.0); %Neutrophils 85.5 % (42.0-75.0); Hemoglobin 12.5 g/dL (14.0-18.0); Mean Corpuscular HGB CONC 33.6 g/dL (32.0-36.0); Mean Corpuscular Hemoglobin 31.1 pg (27.0-31.0); Mean Corpuscular Volume 92.6 fL (78.0-98.0); Mean Platelet Volume 8.2 fL (7.4-10.4); Platelet Count 263 thou/uL (130-400); RBC Distribution Width 13.6 % (11.5-14.5); Red Blood Cell (RBC) Count 4.03 mill/uL (4.70-6.10); White Blood Cell (WBC) Count 13.8 thou/uL (4.8-10.8)
[2020-05-20 05:10] LABS: Anion Gap 13 mmol/L (10-20); BUN (Urea Nitrogen) 19 mg/dL (8.4-25.7); Calc. Creatinine Clearance 100 mL/min (70-130); Calcium 8.4 mg/dL (7.8-10.44); Carbon Dioxide 24 mmol/L (23-31); Chloride 107 mmol/L (98-107); Glucose 131 mg/dL (83-110); Potassium 3.6 mmol/L (3.5-5.1); Sodium 140 mmol/L (136-145)
[2020-05-20] MEDS: Lactated Ringer's 1,000 ML IV SCH (06:07)
[2020-05-20] MEDS: Benzonatate 100 MG CAP PO PRN ×3 (07:56→21:51)
[2020-05-20] MEDS: Mometasone 100 MCG/Formoterol 5 MCG 120 PUFF INHALER INH SCH ×2 (07:58→19:04)
[2020-05-20] MEDS: FLUoxetine HCl 20 MG CAP PO SCH (08:37)
[2020-05-20] MEDS: Azithromycin 500 MG in Sodium Chloride 0.9% 250 ML 250 ML IVPB SCH (08:37)
[2020-05-20] MEDS: Atorvastatin Calcium 40 MG TAB PO SCH (08:37)
[2020-05-20] MEDS: Aspirin 325 MG TAB PO SCH (08:37)
[2020-05-20] MEDS: Enoxaparin Sodium 40 MG/0.4 ML SYRINGE SC SCH (08:38)
[2020-05-20 09:19] VITALS: BMI 25.9
[2020-05-20] MEDS: guaiFENesin 200 MG TAB PO PRN ×2 (09:36→17:37)
[2020-05-20] MEDS ORDERED: diphenhydrAMINE 25 MG CAP PO SCH (21:00)
[2020-05-21] MEDS: Ampicillin/Sulbactam 3 GM in Sodium Chloride 0.9% 100 ML IVPB SCH ×3 (00:21→12:16)
[2020-05-21] MEDS ORDERED: Dextromethorphan Polistirex 30 MG/5 ML (89 ML BOTTLE) PO SCH ×2 (01:00→21:00)
[2020-05-21 04:32] LABS: #Eosinphils 0.1 thou/uL (0.0-0.7); #Lymphocytes 2.4 thou/uL (1.20-3.40); #Monocytes 0.9 thou/uL (0.11-0.59); #Neutrophils 6.9 thou/uL (1.40-6.50); %Basophils 0.1 % (0.0-1.0); %Eosinophils 1.3 % (0.0-10.0); %Monocytes 8.5 % (0.0-10.0); %Neutrophils 67.1 % (42.0-75.0); Hemoglobin 12.6 g/dL (14.0-18.0); Mean Corpuscular HGB CONC 33.3 g/dL (32.0-36.0); Mean Corpuscular Hemoglobin 30.7 pg (27.0-31.0); Mean Corpuscular Volume 92.2 fL (78.0-98.0); Mean Platelet Volume 7.8 fL (7.4-10.4); Platelet Count 290 thou/uL (130-400); RBC Distribution Width 13.7 % (11.5-14.5); Red Blood Cell (RBC) Count 4.11 mill/uL (4.70-6.10); White Blood Cell (WBC) Count 10.3 thou/uL (4.8-10.8)
[2020-05-21 04:44] LABS: Anion Gap 10 mmol/L (10-20); BUN (Urea Nitrogen) 15 mg/dL (8.4-25.7); Calc. Creatinine Clearance 93 mL/min (70-130); Calcium 8.2 mg/dL (7.8-10.44); Carbon Dioxide 27 mmol/L (23-31); Chloride 105 mmol/L (98-107); Glucose 105 mg/dL (83-110); Potassium 3.3 mmol/L (3.5-5.1); Sodium 139 mmol/L (136-145)
[2020-05-21] MEDS ORDERED: Potassium Chloride 20 MEQ TAB PO SCH (06:45)
[2020-05-21] MEDS ORDERED: Potassium Bicarbonate/Cit Ac 20 MEQ TAB PO SCH (07:00)
[2020-05-21] MEDS: Mometasone 100 MCG/Formoterol 5 MCG 120 PUFF INHALER INH SCH (07:05)
[2020-05-21] MEDS: Atorvastatin Calcium 40 MG TAB PO SCH (08:46)
[2020-05-21] MEDS: Azithromycin 500 MG in Sodium Chloride 0.9% 250 ML 250 ML IVPB SCH (08:46)
[2020-05-21] MEDS: Aspirin 325 MG TAB PO SCH (08:46)
[2020-05-21] MEDS: FLUoxetine HCl 20 MG CAP PO SCH (08:46)
[2020-05-21] MEDS: Enoxaparin Sodium 40 MG/0.4 ML SYRINGE SC SCH (08:46)
[2020-05-21 15:08] VITALS: BP 125/72; TEMP 97.8
== END 2020-05-21 16:32 | disposition home or self-care (01) | DRG 871 ==
LOC: ERS 05:21 → ERHOLD 07:00 → 2NO 15:12
PROVIDERS: ADMIT Family Medicine; ATTEND Family Medicine
DX: A41.9 Sepsis, unspecified organism (principal); J69.0 Pneumonitis due to inhalation of food and vomit; J18.9 Pneumonia, unspecified organism; E87.2 Acidosis; Z20.822 Contact with and (suspected) exposure to COVID-19; J44.0 Chronic obstructive pulmonary disease with (acute) lower respiratory infection; R13.10 Dysphagia, unspecified; E78.5 Hyperlipidemia, unspecified; I10 Essential (primary) hypertension; F32.9 Major depressive disorder, single episode, unspecified; E87.6 Hypokalemia; F03.90 Unspecified dementia, unspecified severity, without behavioral disturbance, psychotic disturbance, mood disturbance, and anxiety; R73.03 Prediabetes; K21.9 Gastro-esophageal reflux disease without esophagitis; R77.9 Abnormality of plasma protein, unspecified; I69.354 Hemiplegia and hemiparesis following cerebral infarction affecting left non-dominant side; I69.320 Aphasia following cerebral infarction; I69.391 Dysphagia following cerebral infarction; Z87.891 Personal history of nicotine dependence; Z79.82 Long term (current) use of aspirin; Z79.51 Long term (current) use of inhaled steroids; Z79.899 Other long term (current) drug therapy; Z93.1 Gastrostomy status; Z93.0 Tracheostomy status
CPT/HCPCS: 0240U; 36415; 71045; 80048; 80053; 82553; 83605; 84145; 84484; 85025; 85610; 85730; 87040; 93005; 94640; 94760; 96365; 96366; 96367; 96375; J0295; J0456; J0696; J1650; J2930; J3490; J7050; J7620; Q0163